=== PATIENT | female | born 1980 | race Caucasian/White ===

== ENCOUNTER 2020-08-14 11:33 | Emergency (ER) | payer SELFPAY ==
[2020-08-14 11:47] VITALS: BP 120/71
[2020-08-14 12:14] LABS: HEMATOCRIT 43.2 % (37.0-47.0); HEMOGLOBIN 13.6 g/dl (12.0-16.0); IMMATURE GRANULOCYTES 0.6 % (0.0-5.0); MEAN CELL VOLUME 84.5 fL CALC (80.0-100.0); MEAN CORPUSCULAR HGB 26.6 pG CALC (26.0-32.0); MEAN CORPUSCULAR HGB CONC 31.5 g/dL CAL (32.0-36.0); NEUT# 13.06 thou/uL (2.00-7.15); RED BLOOD COUNT 5.11 mill/uL (4.20-5.60); RED CELL DISTRI WIDTH 14.1 % (11.5-15.5)
[2020-08-14 12:27] LABS: ANION GAP 10 (6-22 (CALC)); BUN 13 mg/dL (7-17); BUN/CREATININE RATIO 15 (12-20 (CALC)); CARBON DIOXIDE 28 mmol/l (22-30); CHLORIDE 102 mmol/l (95-108); CREATININE 0.9 mg/dL (0.5-1.0); GFR > 60 ML/MIN (>=60 (CALC)); GFR FOR AFR.AMER. > 60 ML/MIN (>=60 (CALC)); POTASSIUM 3.7 mmol/l (3.5-5.1); SODIUM 136 mmol/l (137-146)
[2020-08-14] MEDS ORDERED: ZPAK PO (13:13)
[2020-08-14] MEDS ORDERED: CHERATUSSIN PO (13:13)
== END 2020-08-14 13:32 | disposition home or self-care (01) | DRG 153 ==
LOC: ED 11:33
PROVIDERS: Family Medicine
DX: J06.9 Acute upper respiratory infection, unspecified (principal); F17.210 Nicotine dependence, cigarettes, uncomplicated; Z20.822 Contact with and (suspected) exposure to COVID-19

== ENCOUNTER 2022-01-06 11:07 | Emergency (ER) | payer OTHER ==
[2022-01-06] VITALS (7 sets, daily range): BP systolic 117–134; BP diastolic 84–95
[~2022-01-06] VITALS: Ht 175.3 cm; Wt 90.0 kg
[~2022-01-06 11:07] MED LIST: CHERATUSSIN PO; ZPAK PO
[2022-01-06 12:24] LABS: URINE BLOOD DIPSTICK LARGE (NEGATIVE); URINE COLOR YELLOW; URINE GLUCOSE - DIPSTICK NEGATIVE (NEGATIVE); URINE KETONE NEGATIVE (NEGATIVE); URINE PROTEIN - DIPSTICK >=300 mg/dL (NEG-TRACE); URINE SPECIFIC GRAVITY 1.025; URINE UROBILINOGEN - DIPSTICK 0.2 E.U./dL (0.2)
[2022-01-06 12:34] LABS: URINE BILIRUBIN - DIPSTICK SMALL (NEGATIVE); URINE LEUK ESTERASE SMALL (NEGATIVE); URINE NITRITE - DIPSTICK POSITIVE (Negative)
[2022-01-06 12:35] LABS: URINE BACTERIA MANY hpf; URINE EPITHELIAL CELLS FEW EPI/hpf (0-FEW); URINE RBC 50-100 RBC/hpf (0-5); URINE WBC 50-100 WBC/hpf (0-5)
[2022-01-06] MEDS ORDERED: KEFLEX500 MG PO (12:39)
[2022-01-06] MEDS ORDERED: PYRIDIUM200 MG PO (12:39)
== END 2022-01-06 13:05 | disposition home or self-care (01) | DRG 690 ==
LOC: ED 11:07
PROVIDERS: Emergency Medicine
DX: N39.0 Urinary tract infection, site not specified (principal); B96.89 Other specified bacterial agents as the cause of diseases classified elsewhere; F17.200 Nicotine dependence, unspecified, uncomplicated